=== PATIENT | female | born 1965 | race African-American/Black ===

== ENCOUNTER 2018-09-09 02:27 | Emergency (ER) | payer MEDICAID ==
[~2018-09-09] VITALS: Ht 165.1 cm; Wt 63.5 kg
--- NOTE | 2018-09-09 02:27 | NUR ---
PT TO ER BED 2 VIA [facility] AND [facility]
[2018-09-09 02:36] VITALS: BP 145/95
--- NOTE | 2018-09-09 02:55 | NUR ---
[place] [facility] AT BEDSIDE
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
[2018-09-09 03:20] VITALS: BP 140/87
--- NOTE | 2018-09-09 03:20 | NUR ---
Patient discharged with v/s stable. Written and verbal after care instructions given and explained. Patient verbalized understanding. Ambulatory with in custody W/ [place] [employer]. All questions addressed prior to discharge. Advised to follow up with PMD.
== END 2018-09-09 03:20 ==
LOC: MED 02:27
DX: S40.022A Contusion of left upper arm, initial encounter (principal); K21.9 Gastro-esophageal reflux disease without esophagitis; F17.200 Nicotine dependence, unspecified, uncomplicated; Z02.89 Encounter for other administrative examinations; W21.19XA Struck by other bat, racquet or club, initial encounter; Y93.89 Activity, other specified; Y92.89 Other specified places as the place of occurrence of the external cause; Y99.8 Other external cause status
CPT/HCPCS: 99283

== ENCOUNTER 2019-04-08 05:20 | Emergency (ER) | payer MEDICAID ==
[~2019-04-08] VITALS: Ht 165.1 cm; Wt 63.5 kg
[2019-04-08 05:20] VITALS: BP 142/83
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
--- NOTE | 2019-04-08 05:20 | NUR ---
SHIRA PAROD, PREBOOK. TAKEN TO CHAIR C
--- NOTE | 2019-04-08 05:43 | NUR ---
Dr. Vega examining patient.
[2019-04-08] MEDS ORDERED: KETOROLAC 60 MG/2 ML VIAL IM ONE (05:45)
[2019-04-08 06:01] VITALS: BP 142/83
--- NOTE | 2019-04-08 06:01 | NUR ---
DCPatient discharged with v/s stable. Written and verbal after care instructions given and explained. Patient verbalized understanding. Ambulatory with [place] [employer] in custody. All questions addressed prior to discharge. Advised to follow up with PMD.
== END 2019-04-08 06:01 ==
LOC: MED 05:20
DX: S20.212A Contusion of left front wall of thorax, initial encounter (principal); S20.211A Contusion of right front wall of thorax, initial encounter; K21.9 Gastro-esophageal reflux disease without esophagitis; Z88.8 Allergy status to other drugs, medicaments and biological substances; W17.89XA Other fall from one level to another, initial encounter; Y93.89 Activity, other specified; Y92.89 Other specified places as the place of occurrence of the external cause; Y99.8 Other external cause status
CPT/HCPCS: 96372; 99283; J1885

== ENCOUNTER 2019-06-21 01:17 | Emergency (ER) | payer MEDICAID ==
[~2019-06-21] VITALS: Ht 165.1 cm; Wt 63.5 kg
--- NOTE | 2019-06-21 01:17 | NUR ---
Bethel HARPER. TAKEN TO BED 2. [place] [employer] AT BEDSIDE.
[2019-06-21 01:27] VITALS: BP 135/78
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
[2019-06-21] MEDS ORDERED: ACETAMINOPHEN EXTRA STRENGTH 500 MG TAB PO ONE (02:10)
--- NOTE | 2019-06-21 02:20 | NUR ---
PT C/O [address] HEAD PAIN AT THIS TIME. DR PRADO MADE AWARE. PT RESTING IN BED, [place] [employer] AT BEDSIDE
--- NOTE | 2019-06-21 02:29 | NUR ---
PT AMBULATED TO RESTROOM.
--- NOTE | 2019-06-21 03:14 | NUR ---
PT RESTING IN BED IN COMFORTABLE POSITION. BED LOCKED AND IN LOW POSITION. VSS. WILL CONTINUE TO MONITOR. [place] [employer] AT BEDSIDE.
--- NOTE | 2019-06-21 03:56 | NUR ---
CALLED XRAY TO GET TIME FRAME ON XRAYS TO BE DONE ON PT. XRAY STATES THEY WERE ON THEIR WAY.
--- NOTE | 2019-06-21 03:59 | NUR ---
PT TO XRAY VIA WHEELCHAIR.
--- NOTE | 2019-06-21 04:36 | NUR ---
PT RETURN FROM RAD
--- NOTE | 2019-06-21 05:30 | NUR ---
PT RESTING IN BED WITH EYES CLOSED, NO COMPLAINTS AT THIS TIME. VSS. WILL CONTINUE TO MONITOR.
[2019-06-21] MEDS ORDERED: KETOROLAC 30 MG/ML VIAL IM ONE (05:40)
[2019-06-21 05:49] VITALS: BP 133/80
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
== END 2019-06-21 05:50 ==
LOC: MED 01:17
DX: S40.011A Contusion of right shoulder, initial encounter (principal); S30.0XXA Contusion of lower back and pelvis, initial encounter; S09.90XA Unspecified injury of head, initial encounter; T71.9XXA Asphyxiation due to unspecified cause, initial encounter; K21.9 Gastro-esophageal reflux disease without esophagitis; F41.9 Anxiety disorder, unspecified; Z88.5 Allergy status to narcotic agent; Z02.89 Encounter for other administrative examinations; Y04.8XXA Assault by other bodily force, initial encounter; Y93.89 Activity, other specified; Y92.89 Other specified places as the place of occurrence of the external cause; Y99.8 Other external cause status
CPT/HCPCS: 70450; 71045; 72072; 72100; 73020; 96372; 99284; J1885

== ENCOUNTER 2023-03-14 02:30 | Emergency (ER) | payer MEDICAID ==
[~2023-03-14] VITALS: Ht 165.1 cm; Wt 72.6 kg
[2023-03-14 02:38] VITALS: BP 127/83; PULSE 90; RESP 16; TEMP 97.7; O2SAT 97
--- NOTE | 2023-03-14 02:42 | NUR ---
to lobby a/w bed ambulatory
[2023-03-14] MEDS ORDERED: PYR100 PO (06:26)
[2023-03-14] MEDS ORDERED: CEPH-588 PO (06:26)
== END 2023-03-14 03:36 | disposition left against medical advice (07) ==
LOC: MED 02:30
DX: R07.9 Chest pain, unspecified (principal); R35.0 Frequency of micturition; Z53.21 Procedure and treatment not carried out due to patient leaving prior to being seen by health care provider
CPT/HCPCS: 99281

== ENCOUNTER 2023-03-14 04:00 | Emergency (ER) | payer MEDICAID ==
[~2023-03-14] VITALS: Ht 165.1 cm; Wt 63.5 kg
[2023-03-14 04:10] VITALS: BP 122/69; PULSE 92; RESP 17; TEMP 97.9; O2SAT 96
--- NOTE | 2023-03-14 04:14 | NUR ---
to bed ambulatory
[2023-03-14 04:15] VITALS: BP 122/69; PULSE 92; RESP 17; TEMP 97.9; O2SAT 96
--- NOTE | 2023-03-14 04:46 | NUR ---
UA COLLECTED AND SENT TO LAB
[2023-03-14 04:53] LABS: APPEARANCE,URINE CLEAR (CLEAR); BILIRUBIN,URINE 1+ (NEGATIVE); BLOOD, URINE 1+ (NEGATIVE); COLOR,URINE YELLOW (YELLOW); LEUKOCYTE ESTERASE ,URINE TRACE (NEGATIVE); NITRITE, URINE POSITIVE (NEGATIVE); PH,URINE 5.5 (5.0-9.0); UGLUCOSE NEGATIVE (NEGATIVE)
[2023-03-14 05:04] LABS: URINE AMORPHOUS URATE 2+ /HPF (None Seen)
[2023-03-14] MEDS ORDERED: CEPH-588 PO (06:26)
[2023-03-14] MEDS ORDERED: PYR100 PO (06:26)
--- NOTE | 2023-03-14 06:30 | NUR ---
Patient discharged with v/s stable. Written and verbal after care instructions given and explained. Patient alert, oriented and verbalized understanding of instructions. Ambulatory with steady gait. All questions addressed prior to discharge. ID band removed. Patient advised to follow up with PMD. Rx of KEFLEX AND PYRIDUM given. Opportunity to ask questions provided and answered.
== END 2023-03-14 06:30 | disposition home or self-care (01) ==
LOC: MED 04:00
DX: N39.0 Urinary tract infection, site not specified (principal); K21.9 Gastro-esophageal reflux disease without esophagitis; Z79.899 Other long term (current) drug therapy; Z79.2 Long term (current) use of antibiotics; Z88.5 Allergy status to narcotic agent
CPT/HCPCS: 81001; 87086; 99283

== ENCOUNTER 2023-04-10 16:03 | Emergency (ER) | payer MEDICAID ==
[~2023-04-10] VITALS: Ht 165.1 cm; Wt 63.5 kg
[2023-04-10 16:03] VITALS: BP 131/71; PULSE 77; RESP 17; TEMP 97.8; O2SAT 96
[~2023-04-10 16:03] MED LIST: CEPH-588 PO; PYR100 PO
[2023-04-10] MEDS ORDERED: NACL 0.9% 1,000 ML IV SCH (16:10)
[2023-04-10] MEDS ORDERED: ONDANSETRON 4 MG/2 ML VIAL IVP ONE (16:10)
[2023-04-10 17:30] LABS: BASOPHILS % (AUTO) 0.4 % (0.0-2.0); EOSINOPHILS # (AUTO) 0.1 K/uL (0-0.4); EOSINOPHILS % (AUTO) 0.6 % (0.0-4.0); HEMATOCRIT 46.4 % (36-48); HEMOGLOBIN 15.1 g/dL (12.0-16.0); LYMPHOCYTES # (AUTO) 1.2 K/uL (2.5-16.5); LYMPHOCYTES % (AUTO) 10.7 % (20.5-51.1); MEAN CORPUSCULAR HEMOGLOBIN 30 pg (27-31); MEAN CORPUSCULAR HGB CONC 33 g/dL (33-37); MEAN CORPUSCULAR VOLUME 91.4 fL (80-94); MONOCYTES % (AUTO) 36.1 % (1.7-9.3); NEUTROPHILS # (AUTO) 5.8 K/uL (1.8-7.7); NEUTROPHILS % (AUTO) 52.2 % (42.2-75.2); PLATELET COUNT (AUTO) 292 K/uL (140-450); RED BLOOD CELL COUNT(AUTO) 5.08 MIL/uL (4.20-5.40); RED CELL DISTRIBUTION WIDTH 14.9 % (11.6-13.7); WHITE BLOOD COUNT (AUTO) 11.1 K/uL (4.8-10.8)
[2023-04-10 17:44] LABS: ALBUMIN 3.7 g/dL (3.4-5.0); ANION GAP 15.7 (8-16); CALCIUM 8.5 mg/dL (8.5-10.1); CARBON DIOXIDE 22.8 mmol/L (21-32); CREATININE 0.8 mg/dL (0.6-1.3); POTASSIUM 3.5 mmol/L (3.5-5.1); TOTAL BILIRUBIN 0.5 mg/dL (0.0-1.0); TOTAL PROTEIN, SERUM 8.2 g/dL (6.4-8.2)
[2023-04-10] MEDS ORDERED: ONDA8TAB87 PO (18:11)
[2023-04-10 18:30] VITALS: TEMP 97.9
[2023-04-10 20:10] VITALS: BP 144/90; PULSE 98; RESP 16; O2SAT 94
== END 2023-04-10 20:10 | disposition home or self-care (01) ==
LOC: MED 16:03
DX: R11.2 Nausea with vomiting, unspecified (principal); F10.129 Alcohol abuse with intoxication, unspecified; Y90.9 Presence of alcohol in blood, level not specified
CPT/HCPCS: 36415; 80053; 83690; 85025; 96361; 96374; 99283; J2405; J7030